=== PATIENT | male | born 1955 | race Caucasian/White ===

== ENCOUNTER 2017-02-14 13:01 | Emergency (ER) | payer BC, OTHER ==
[2017-02-14 13:07] VITALS: BP 152/81; PULSE 83; TEMP 98.1; BMI 28.1
[2017-02-14] MEDS ORDERED: SULFAMETHOXAZOLE/TRIMETHOPRIM 800MG/160MG D.S. TABLET PO ONE (13:25)
[2017-02-14] MEDS ORDERED: DIPHTH,PERTUSS(ACELL),TET 0.5 ML DISP.SYRIN IM ONE (13:25)
[2017-02-14] MEDS ORDERED: IBUPROFEN 600 MG TABLET (FP) PO ONE ×2 (13:25→13:28)
[2017-02-14] MEDS ORDERED: SULFAMETHOXAZOLE/TRIMETHOPRIM 800MG/160MG D.S. TABLET ONE (13:28)
--- NOTE | 2017-02-14 13:54 | PDOC ---
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 Sustained a contusion, and a superficial abrasion to his left knee that was painful. Since that time has had progressive tenderness, and noted today some mild swelling to his left calf and lower extremity with continued pain to his knee. Denies fevers, although feels joint is mildly warm. Has used ibuprofen for pain relief with minimal resolved. Once frequent heavy lifting, and kneeling at his work here and has mild risk for DVT. Location, no history of DVT or venous insufficiency. Occurred: reports: last week Severity: reports: mild, moderate Pain Location: reports: lower extremity (right knee) Method of Injury: Yes: direct blow, fall Associated Symptoms (Fall): denies symptoms Past History - Travel Traveled outside of the country in the last 30 days: No Close contact w/someone who was outside of country & ill: No - Past Medical History Allergies/Adverse Reactions: Allergies Allergy/AdvReac Type Severity Reaction Status Date / Time No Known Allergies Allergy Verified 02/14/17 13:04 Home Medications: Ambulatory Orders Sulfamethoxazole/Trimethoprim [Bactrim *Ds*] 1 each PO BID #14 tablet 02/14/17 Telmisartan [Micardis] 40 mg PO DAILY 02/14/17 HTN: Yes - Psycho/Social/Smoking Cessation Hx Suicidal Ideation: No Smoking History: Former smoker Have you smoked in the past 12 months: No Information on smoking cessation initiated: No Hx Alcohol Use: Yes ([facility]) Substance Use Type: Alcohol Trauma Specific PMHX - Complaint Specific PMHX Back Injury: No Neck Injury: No Review of Systems - Review of Systems Able to Perform ROS?: Yes Is the patient limited Kiswahili proficient: Yes Constitutional: Yes: Symptoms Reported, See HPI, Malaise. No: Fever HEENTM: No: Symptoms Reported Respiratory: No: Symptoms reported : No: Symptoms Reported Musculoskeletal: Yes: Symptoms Reported Integumentary: Yes: Symptoms Reported, Pruritus, Rash Neurological: Yes: Symptoms reported All Other Systems: Reviewed and Negative *Physical Exam - Vital Signs Last Vital Signs Temp Pulse Resp BP Pulse Ox 98.1 F 83 19 152/81 99 02/14/17 13:04 02/14/17 13:04 02/14/17 13:04 02/14/17 13:04 02/14/17 13:04 - Physical Exam General Appearance: Yes: Nourished, Appropriately Dressed, Apparent Distress HEENT: positive: KIMBERLY, Normal ENT Inspection, TMs Normal Neck: positive: Supple. negative: Tender Respiratory/Chest: positive: Lungs Clear, Normal Breath Sounds Musculoskeletal: positive: Decreased Range of Motion (pain to ). negative: Normal Inspection Extremity: positive: Normal Capillary Refill, Tender (superficial abrasion to left patella ) Integumentary: positive: Warm, Pale, Swelling. negative: Normal Color Neurologic: positive: resident surgeon II-XII NML intact, Fully Oriented, Alert, Normal Mood/ Affect, Normal Response, Motor Strength / ED Treatment Course - RADIOLOGY Radiology Studies Ordered: Category Date Time Status DUPLEX VASCUL US-1 LEG [US] Stat Ultrasound 02/14/17 13:25 Ordered - Medications Given in the ED: ED Medications Discontinued Medications Generic Name Dose Route Start Last Admin Trade Name Freq PRN Reason Stop Dose Admin Diphtheria/Tetanus/Acell Pertussis 0.5 ml 02/14/17 13:25 02/14/17 13:33 Boostrix - IM 02/14/17 13:26 0.5 ml ONCE ONE Administration Ibuprofen 600 mg 02/14/17 13:25 02/14/17 13:33 Motrin - PO 02/14/17 13:26 600 mg ONCE ONE Administration Trimethoprim/Sulfamethoxazole 1 each 02/14/17 13:25 02/14/17 13:33 Bactrim Ds - PO 02/14/17 13:26 1 each ONCE ONE Administration Progress Note - Progress Note Progress Note: fall with pain and swelling to left Knee Medical Decision Making - Medical Decision Making 02/14/17 14:51 US negative for DVT/ will treat for Cellulitis/ Bactrim Ds started and will F?U with P<D tommorrow *DC/Admit/Observation/Transfer Diagnosis at time of Disposition: Cellulitis Qualifiers: Site of cellulitis: extremity Site of cellulitis of extremity: lower extremity Laterality: right Qualified Code(s): L03.115 - Cellulitis of right lower limb - Discharge Dispostion Disposition: HOME Condition at time of disposition: Stable Admit: No - Prescriptions Prescriptions: Sulfamethoxazole/Trimethoprim [Bactrim *Ds*] 1 each PO BID #14 tablet - Referrals Referrals: Emigdio Centeno MD [Primary Care Provider] - Sacha Bronson MD [Staff Physician] - - Patient Instructions Printed Discharge Instructions: DI for Knee Pain, DI for Cellulitis -- Adult Additional Instructions: Rest, ice to area on and off for 15 minutes 4-6 times a day Avoid heavy lifting or exercise until pain and swelling is resolved or until further directed Keep area highly elevated to reduce swelling Use splints/Elder wrap as directed Followup with orthopedist in one to 2 days if not improving, if significantly improved may wait one week for followup with orthopedist May use ibuprofen 2-200 mg tablets every 6 hours as needed for pain Bactrim DS one tablet every 12 hours for one week Return immediately to emergency department for redness, worsen swelling, worsen pain or fevers. - Post Discharge Activity Work/School Note: Back to Work
--- NOTE | 2017-02-14 14:14 | PDOC ---
History of Present Illness - General Chief Complaint: Injury Stated Complaint: EMPLOYEE, KNEE PAIN Time Seen by Provider: 02/14/17 13:18 History Source: Patient - History of Present Illness Occurred: reports: last week Past History - Past Medical History Allergies/Adverse Reactions: Allergies Allergy/AdvReac Type Severity Reaction Status Date / Time No Known Allergies Allergy Verified 02/14/17 13:04 Home Medications: Ambulatory Orders Telmisartan [Micardis] 40 mg PO DAILY 02/14/17 HTN: Yes - Psycho/Social/Smoking Cessation Hx Suicidal Ideation: No Smoking History: Former smoker Have you smoked in the past 12 months: No Information on smoking cessation initiated: No Hx Alcohol Use: Yes (occ) Substance Use Type: Alcohol *Physical Exam - Vital Signs Last Vital Signs Temp Pulse Resp BP Pulse Ox 98.1 F 83 19 152/81 99 02/14/17 13:04 02/14/17 13:04 02/14/17 13:04 02/14/17 13:04 02/14/17 13:04 ED Treatment Course - RADIOLOGY Radiology Studies Ordered: Category Date Time Status DUPLEX VASCUL US-1 LEG [US] Stat Ultrasound 02/14/17 13:25 Ordered
== END 2017-02-14 15:31 | disposition home or self-care (01) ==
LOC: JERFT 13:01
PROC: 3E0234Z Introduction of Serum, Toxoid and Vaccine into Muscle, Percutaneous Approach (ICD-10-PCS; principal; 2017-02-14)
DX: L03.116 Cellulitis of left lower limb (principal); S80.212A Abrasion, left knee, initial encounter; W01.0XXA Fall on same level from slipping, tripping and stumbling without subsequent striking against object, initial encounter; Y93.89 Activity, other specified; Y92.238 Other place in hospital as the place of occurrence of the external cause
CPT/HCPCS: 90715; 93971-TC; 99281-25

== ENCOUNTER 2019-08-08 10:31 | Emergency (ER) | payer OTHER, BC ==
[2019-08-08 10:36] VITALS: BP 129/69; PULSE 81; TEMP 97.9; BMI 26.6
[2019-08-08] MEDS ORDERED: DIPHTH,PERTUSS(ACELL),TET 0.5 ML DISP.SYRIN IM ONE ×2 (10:44→10:47)
--- NOTE | 2019-08-08 10:55 | PDOC ---
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 Time Seen by Provider: 08/08/19 10:35 History Source: Patient - History of Present Illness Occurred: reports: this morning Pain Location: reports: face Past History - Past Medical History Allergies/Adverse Reactions: Allergies Allergy/AdvReac Type Severity Reaction Status Date / Time No Known Allergies Allergy Verified 08/08/19 10:33 Home Medications: Ambulatory Orders Telmisartan [Micardis] 40 mg PO DAILY 02/14/17 Metoprolol Succinate [Toprol Xl -] 50 mg PO DAILY 08/08/19 HTN: Yes - Psycho Social/Smoking Cessation Hx Smoking History: Never smoked Have you smoked in the past 12 months: No Hx Alcohol Use: Yes (occ) Substance Use Type: Alcohol Trauma Specific PMHX - Complaint Specific PMHX Back Injury: No Neck Injury: No Review of Systems - Review of Systems ABD/GI: No: Nausea, Vomiting Neurological: No: Headache *Physical Exam - Vital Signs Last Vital Signs Temp Pulse Resp BP Pulse Ox 97.9 F 81 16 129/69 99 08/08/19 10:35 08/08/19 10:35 08/08/19 10:35 08/08/19 10:35 08/08/19 10:35 - Physical Exam General Appearance: Yes: Appropriately Dressed. No: Apparent Distress HEENT: positive: Other (~0.5 cmsuperficial lac to mid forehead, +abrasions to forehead and nasal bridge) Neck: positive: Supple Respiratory/Chest: negative: Respiratory Distress Integumentary: positive: Dry, Warm Neurologic: positive: Fully Oriented, Alert, Normal Mood/Affect Procedures - Laceration/Wound Repair Face Wound Length: to 2.5 cm Wound Explored: clean Betadine Prep: Yes Wound Repaired With: Dermabond Medical Decision Making - Medical Decision Making 08/08/19 11:28 63-year-old male no significant history and not on blood thinners, here with facial contusion. States while at work today at [employer] he accidentally struck his forehead against a metal beam. No LOC, headache, nausea , vomiting ,visual changes or dizziness see exam Minor facial lac s/p dermabond repair today Tetanus updated Wound check as needed in 48 hrs Discharge - Discharge Information Problems reviewed: Yes Clinical Impression/Diagnosis: Facial abrasion Qualifiers: Encounter type: initial encounter Qualified Code(s): S00.81XA - Abrasion of other part of head, initial encounter Condition: Good Disposition: HOME - Follow up/Referral - Patient Discharge Instructions Patient Printed Discharge Instructions: DI for Laceration Repair Additional Instructions: Do not bandage a wound treated with an adhesive. The adhesive works like a bandage. Do not use antibiotic ointment as it can break down the adhesive. You can shower while the adhesive is on your skin, but do not take a bath or soak or scrub the area for 7 to 10 days. Dry your skin by patting it gently with a towel. The adhesive will peel off on its own, usually by 5 to 10 days. If after 10 days , you still have adhesive on you, you can use antibiotic ointment or petroleum jelly to get it off. You do not need to see the doctor again unless the wound doesnt heal well or you have signs of infection, such as redness, swelling, or pus. - Post Discharge Activity
== END 2019-08-08 10:58 | disposition home or self-care (01) ==
LOC: JERFT 10:31
PROC: 0HQ1XZZ Repair Face Skin, External Approach (ICD-10-PCS; principal; 2019-08-08)
PROC: 3E0234Z Introduction of Serum, Toxoid and Vaccine into Muscle, Percutaneous Approach (ICD-10-PCS; 2019-08-08)
DX: S01.81XA Laceration without foreign body of other part of head, initial encounter (principal); S00.31XA Abrasion of nose, initial encounter; W22.8XXA Striking against or struck by other objects, initial encounter; Y93.89 Activity, other specified; Y92.238 Other place in hospital as the place of occurrence of the external cause; Y99.0 Civilian activity done for income or pay
CPT/HCPCS: 90715; 99282-25

== ENCOUNTER 2024-04-26 05:08 | Day surgery (SDC) | payer OTHER, BC ==
[2024-04-24 08:47] VITALS: BMI 28.1
[2024-04-26 09:47] VITALS: TEMP 98.7
[2024-04-26 10:19] VITALS: BP 159/80; PULSE 67; RESP 16
== END 2024-04-26 10:27 | disposition home or self-care (01) ==
LOC: JASU-ENDO 05:08
PROVIDERS: ATTEND Internal Medicine Gastroenterology
PROC: 0DBP8ZX Excision of Rectum, Via Natural or Artificial Opening Endoscopic, Diagnostic (ICD-10-PCS; 2024-04-26)
PROC: 0DBP8ZX Excision of Rectum, Via Natural or Artificial Opening Endoscopic, Diagnostic (ICD-10-PCS; principal; 2024-04-26 09:00)
DX: Z12.11 Encounter for screening for malignant neoplasm of colon (principal); D12.8 Benign neoplasm of rectum; K62.89 Other specified diseases of anus and rectum
CPT/HCPCS: 88305-TC